=== PATIENT | male | born 1960 | race Caucasian/White ===

== ENCOUNTER → 2023-12-14 | Outpatient (CLI) | payer SELFPAY ==
--- NOTE | 2023-12-14 14:38 | ECHOD_ITS ---
Reason For Study: DIZZINESS Procedure This was a 2D Doppler, Color Flow transthoracic echocardiogram. Exam performed in department. Left Ventricle Normal size and thickness. The left ventricular ejection fraction is 65 %. No evidence for diastolic dysfunction. Right Ventricle Normal right ventricle. Atria The left and right atria are normal. Mitral Valve Trivial mitral valve insufficiency. Tricuspid Valve Trivial tricuspid valve insufficiency. Normal pulmonary artery pressure. Aortic Valve Trisinus/trileaflet aortic valve. Pulmonic Valve The pulmonic valve is not well visualized. Great Vessels Normal sized aortic root. Pericardium/Pleural No pericardial effusion. MMode/2D Measurements & Calculations LVIDd: 4.6 cm IVSd: 1.2 cm LVOT diam: 1.9 cm LVIDs: 3.1 cm LVPWd: 0.69 cm LVOT area: 2.9 cm2 RVDd: 3.6 cm FS: 31.9 % asc Aorta Diam: 2.6 cm LAV(MOD-bp): 26.8 ml LVAd ap4: 20.1 cm2 LAV(MOD-bp) Indexed: 14.6 ml/m2 LVLd ap4: 7.0 cm LAV(MOD-sp2): 28.5 ml EDV(MOD-sp4): 48.4 ml LAV(MOD-sp4): 24.7 ml EDV(sp4-el): 49.1 ml LVAs ap4: 11.1 cm2 LVLs ap4: 5.6 cm ESV(MOD-sp4): 19.4 ml ESV(sp4-el): 18.6 ml EF(MOD-sp4): 59.9 % EF(sp4-el): 62.1 % LVAd ap2: 21.1 cm2 SV(MOD-sp4): 29.0 ml SV(MOD-sp2): 31.5 ml LVLd ap2: 6.7 cm SI(MOD-sp4): 15.7 ml/m2 SI(MOD-sp2): 17.1 ml/m2 EDV(MOD-sp2): 54.5 ml EDV(sp2-el): 56.9 ml LVAs ap2: 12.7 cm2 LVLs ap2: 5.8 cm ESV(MOD-sp2): 22.9 ml ESV(sp2-el): 23.6 ml EF(MOD-sp2): 57.9 % SV(sp4-el): 30.5 ml Ao sinus diam: 2.[address] Junction: 2.3 cm LA dimension(2D): 3.6 cm LA A4 area: 12.2 cm2 RA A4 area: 12.5 cm2 TAPSE: 1.7 cm Time Measurements MV dec time: 0.16 sec Doppler Measurements & Calculations MV E max [place]: 72.7 cm/sec Lat Peak E' [place]: 11.0 cm/sec Med Peak E' [place]: 10.9 cm/sec MV A max [place]: 69.7 cm/sec E/E' lat: 6.6 E/E' med: 6.7 MV E/A: 1.0 MV dec slope: 449.0 cm/sec2 Ao V2 max: 110.9 cm/sec LV V1 max: 84.0 cm/sec Ao max P.9 mmHg LV V1 max P.8 mmHg Ao V2 mean: 83.6 cm/sec LV V1 mean P.5 mmHg Ao mean P.9 mmHg LV V1 mean: 57.6 cm/sec Ao V2 VTI: 22.7 cm LV V1 VTI: 18.9 cm AV (velocity ratio): 0.83 JANAY(I,D): 2.4 cm2 JANAY(V,D): 2.2 cm2 SV(LVOT): 53.9 ml PA V2 max: 127.1 cm/sec TR max [place]: 204.3 cm/sec PA max PG (full): 4.9 mmHg TR max P.7 mmHg ECHO/Echo Complete Interpretation Summary The left ventricular ejection fraction is 65 %. Ordering Physician: Kojo Thomson Referring Physician: Kojo Thomson MD Performed By: Janeth Ortiz RDCS
== END | disposition home or self-care (01) ==
PROVIDERS: PCP Family Medicine; Referring Provider Internal Medicine Cardiovascular Disease; Visit Provider Internal Medicine Cardiovascular Disease
DX: R42 Dizziness and giddiness (principal); I34.0 Nonrheumatic mitral (valve) insufficiency
CPT/HCPCS: 93306